=== PATIENT | female | born 1985 | race Caucasian/White ===

== ENCOUNTER 2018-12-28 17:41 | Emergency (ER) | payer SELFPAY ==
--- NOTE | 2018-12-28 18:53 | EDM.PDOC ---
ED HPI GENERAL MEDICAL PROBLEM - General Chief Complaint: Back Pain or Injury Stated Complaint: BACK PAIN Time Seen by Provider: 12/28/18 17:55 Source of Information: Reports: Patient, RN Notes Reviewed History Limitations: Reports: No Limitations - History of Present Illness INITIAL COMMENTS - FREE TEXT/NARRATIVE: Patient is a 33-year-old female who presents to the ED for the evaluation of left lower back pain. The patient states she has a history of recurrent UTIs, and she normally gets back pain when she has a UTI. She states that this pain is usually bilateral lower back pain when she has a UTI, however. The patient notes that she has some urinary urgency and hesitancy at this time as well. She also relates that she is unsure if she could be at this time, as she believes her last menstrual period be roughly 6 weeks ago. 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 She states that this pain kind of comes and goes in nature. She would rate her pain at a 7 out of 10 today. Do not take any pain medications for this. Left Lower Back Pain Score (Numeric/FACES): 7 - Related Data Allergies Allergy/AdvReac Type Severity Reaction Status Date / Time Sulfa (Sulfonamide Allergy Airway Verified 12/28/18 18:07 Antibiotics) Tightness Home Meds: Home Meds Orphenadrine [Norflex] 100 mg PO BID PRN #20 tab 12/28/18 [Rx] Past Medical History - Past Health History Medical/Surgical History: Denies Medical/Surgical History Genitourinary History: Reports: UTI, Recurrent Social & Family History - Tobacco Use Smoking Status *Q: Never Smoker Second Hand Smoke Exposure: No - Caffeine Use Caffeine Use: Reports: None - Recreational Drug Use Recreational Drug Use: No ED ROS GENERAL - Review of Systems Review Of Systems: See Below Constitutional: Reports: No Symptoms HEENT: Reports: No Symptoms Respiratory: Reports: No Symptoms Cardiovascular: Reports: No Symptoms Endocrine: Reports: No Symptoms GI/Abdominal: Reports: No Symptoms : Reports: Frequency, Urgency, Other (LMP roughly 6 weeks ago.) Musculoskeletal: Reports: Back Pain (L lower) Skin: Reports: No Symptoms Neurological: Denies: Numbness, Tingling Psychiatric: Reports: No Symptoms Hematologic/Lymphatic: Reports: No Symptoms Immunologic: Reports: No Symptoms ED EXAM,LOWER BACK PAIN/INJURY - Physical Exam Exam: See Below Exam Limited By: No Limitations General Appearance: Alert, WD/WN, No Apparent Distress Head: Atraumatic, Normocephalic Neck: Normal Inspection, Supple, Non-Tender, Full Range of Motion Respiratory/Chest: No Respiratory Distress, Lungs Clear, Normal Breath Sounds, No Accessory Muscle Use, Chest Non-Tender Cardiovascular: Normal Peripheral Pulses, Regular Rate, Rhythm, No Murmur GI/Abdominal: Normal Bowel Sounds, Soft, Non-Tender, No Distention, No Mass Back Exam: Normal Inspection, Full Range of Motion Extremities: Normal Inspection, Normal Capillary Refill Neurological: Alert, Normal Mood/Affect, Normal Dorsiflexion, Normal Plantar Flexion, Normal Gait, Normal Reflexes, No Motor/Sensory Deficits, Oriented x 3. No: Straight Leg Raise (L), Straight Leg Raise (R), Saddle Anesthesia Psychiatric: Normal Affect, Normal Mood Skin Exam: Warm, Dry, Intact, Normal Color, No Rash Course - Vital Signs Last Recorded V/S: Last Vital Signs Temp 98.9 F 12/28/18 18:07 Pulse 63 12/28/18 18:07 Resp 18 12/28/18 18:07 BP 94/46 L 12/28/18 18:07 Pulse Ox 100 12/28/18 18:07 - Orders/Labs/Meds Labs: Laboratory Tests 12/28/18 12/28/18 Range/Units 19:25 20:07 HCG, Qual Negative (NEGATIVE) Urine Color Yellow (Yellow) Urine Appearance Clear (Clear) Urine pH 6.0 (5.0-8.0) Ur Specific [place] 1.010 (1.005-1.030) Urine Protein Negative (Negative) Urine Glucose (UA) Negative (Negative) Urine Ketones Negative (Negative) Urine Occult Blood Negative (Negative) Urine Nitrite Negative (Negative) Urine Bilirubin Negative (Negative) Urine Urobilinogen 0.2 (0.2-1.0) Ur Leukocyte Esterase Negative (Negative) Urine RBC 0-5 (0-5) /hpf Urine WBC 0-5 (0-5) /hpf Ur Squamous Epith Cells 0-5 (0-5) /hpf Urine Bacteria Occasional (FEW) /hpf Urine Mucus Not seen (FEW) /hpf - Re-Assessments/Exams Free Text/Narrative Re-Assessment/Exam: 12/28/18 18:58 Patient presents to the ED for the evaluation of left lower back pain. I have ordered a UA, serum hCG as the patient notes her last urinalysis test was negative with a previous . If these should come back negative, I will reassess her symptoms and treat her back pain appropriately. 12/28/18 20:41 Patient's labs have returned, she does not have a UTI at this time, and her serum hCG level is negative at this visit. However she still has not gotten a period in over 6 weeks I will give her a prescription for Norflex, and recommend that she take Tylenol for pain management and seek reevaluation for a confirmation blood level within the next week or so. She is amenable to this plan. Departure - Departure Time of Disposition: 20:41 Disposition: Home, Self-Care 01 Condition: Fair Clinical Impression: Low back pain Qualifiers: Chronicity: acute Back pain laterality: left Sciatica presence: without sciatica Qualified Code(s): M54.5 - Low back pain - Discharge Information *PRESCRIPTION DRUG MONITORING PROGRAM REVIEWED*: No *COPY OF PRESCRIPTION DRUG MONITORING REPORT IN PATIENT ANI: No Instructions: Back Injury Prevention, [id number] Referrals: PCP,None [Primary Care Provider] - Forms: ED Department Discharge Additional Instructions: You have been evaluated in the ED for your lower back pain. Your lab work today was negative for a UTI at this time, and your and level was also negative. However I would recommend that you go to a walk-in clinic for confirmation test within the next week or so, as you have not had your period in 6 weeks. Please use ice/heat as tolerated to the affected area. You have been provided with a prescription for Norflex, and muscle relaxer, please take one tab 2 times daily as needed for muscle spasms. This has been electronically sent to the [place] [facility] located [facility] the [facility]. You may take tylenol 500 mg q6 hrs for pain relief. Please do so until you have a tolerable level of pain with activity. Do not exceed 4000mg tylenol in a 24 hour time period. Please return to ED if your symptoms should change or worsen.
== END 2018-12-28 20:55 | disposition home or self-care (01) ==
LOC: JD.ED 17:41
DX: M54.5 Low back pain (principal); Z88.2 Allergy status to sulfonamides; Z79.899 Other long term (current) drug therapy
CPT/HCPCS: 36415; 81001; 84703; 99283